=== PATIENT | female | born 1955 | race Caucasian/White ===

== ENCOUNTER 2016-11-11 11:31 | Day surgery (SDC) | payer BC, OTHER ==
[2016-11-11] MEDS ORDERED: MIDAZOLAM 2 MG/2 ML VIAL ONE ×2 (12:06→12:40)
[2016-11-11] MEDS ORDERED: fentaNYL 100 MCG/2 ML INJ ONE (12:06)
--- NOTE | 2016-11-11 13:58 | GPN ---
[f rep st] PROCEDURE NOTE DATE OF PROCEDURE: 11/11/2016 PROCEDURE: 1. Colonoscopy with biopsy. 2. Argon plasma coagulation and polypectomy procedure. INDICATION: Previous colonoscopy in July of 2016 revealed a 12 mm polyp in the cecum that had multiple areas of high-grade dysplasia. There was an additional 25 mm polyp in the distal ascending colon that was removed in piecemeal technique. The larger polyp was only a tubular adenoma. This procedure is to re-evaluate the cecal site to make sure there is no residual tissue with any high-grade dysplasia. PREOPERATIVE DIAGNOSIS: Rule out residual polyp tissue. POSTPROCEDURE DIAGNOSIS: 1. Mildly abnormal tissue in previous area of cecal polypectomy site, status post biopsy and argon plasma coagulation of any remaining tissue. 2. Small amount of abnormal tissue at previous distal ascending colon polypectomy site, status post biopsy and argon plasma coagulation. 3. 15 mm semi-pedunculated polyp in the rectosigmoid area, removed in total by hot snare. 4. Diffuse melanosis coli. INFORMED CONSENT: I had a detailed discussion with the patient regarding the procedure, alternatives, benefits, and risks, including bleeding, perforation, infection, risk of medication. Informed consent was signed and witnessed. COMPLICATIONS: None immediate. MEDICATIONS: Used for today is Versed 9 mg IV, fentanyl 100 mcg IV. DESCRIPTION OF PROCEDURE: Patient was in left lateral decubitus position. After adequate sedation, a visual and digital anorectal examination was performed. The video colonoscope was then inserted via the rectum and advanced under visualization to the cecum, identified by ileocecal valve, appendiceal orifice, confluence of tinea, and palpation. The patient did have significant looping in the colon that required manual pressure, increased sedation, and shortening and reduction of the loop. When we performed this in July as an outpatient, she was unsedated and had a very difficult time with the procedure. Knowing I woujld be repeating the exam within a few months, that is why removed the scope quickly and did not recognize a large polyp in the rectosigmoid area. With adequate sedation, the patient tolerated the procedure fairly well. Upon withdrawal of the instrument, careful attention was paid to mucosal detail. The prep was very good. There was diffuse melanosis coli which made it actually relatively easy to see the previous polypectomy sites. The area in the cecum, I had used a hot snare. There was some mildly abnormal tissue. I do not think there was any residual polyp tissue. Nevertheless, I did biopsy the area extensively and destroyed it with argon plasma coagulation. Retroflex examination did reveal a tiny bit of abnormal tissue at the large polypectomy site in the distal ascending colon. Multiple biopsies were obtained, and this area was again treated with argon positive coagulation to destroy any remaining tissue. In addition, a 1.5 cm polyp was noted in the rectosigmoid colon and semi-pedunculated. This was removed in total by hot snare. Retroflexed examination was performed in the rectum as well as the ascending colon as noted above. The patient tolerated the procedure well, and was transferred to recovery room in satisfactory condition. IMPRESSION: 1. Mildly abnormal tissue at the cecal polypectomy site, status post biopsy and argon plasma coagulation. 2. Mildly abnormal tissue at previous ascending colon polypectomy site, status post biopsy and argon plasma coagulation. 3. 1.5 cm rectosigmoid polyp removed by cold snare. 4. Diffuse melanosis coli. RECOMMENDATIONS: 1. Follow up pathology of polyps. 2. Repeat colonoscopy will be determined by the results of the pathology. I do not think I would wait more than 1 year to re-evaluate this colon. If there is significant abnormal tissue at the previous polypectomy site in the cecum with any high-grade dysplasia, we may consider surgical resection. 3. Try to avoid aspirin, nonsteroidal anti-inflammatory drugs for at least 1 week if not 10 days. Tylenol is fine to use. 4. High-fiber, high-fluid diet. 5. Try to avoid senna and cascara-type laxatives. This is the cause of the melanosis coli. We believe those laxatives may cause "a lazy colon" in the long run. 6. Discharge home with escort when stable. 7. Follow up with primary care physician as scheduled. 8. Would recommend her 1st degree relatives get screened starting at age 40 at 10-year intervals given patient's large polyps removed in her early 60s. I suspect these were present in her late 50s. 9. Further recommendations to follow results of pathology. Thank you for allowing me to participate in patient's care. Do not hesitate to call me with any questions. /[id number]/MODL MTDD
== END 2016-11-11 13:40 | disposition home or self-care (01) ==
LOC: FSGY 11:31
PROVIDERS: ATTEND Internal Medicine Gastroenterology
PROC: 0DBN8ZX Excision of Sigmoid Colon, Via Natural or Artificial Opening Endoscopic, Diagnostic (ICD-10-PCS; principal; 2016-11-11 12:15)
PROC: 0DBH8ZX Excision of Cecum, Via Natural or Artificial Opening Endoscopic, Diagnostic (ICD-10-PCS; principal; 2016-11-11 12:15)
PROC: 0DBK8ZX Excision of Ascending Colon, Via Natural or Artificial Opening Endoscopic, Diagnostic (ICD-10-PCS; principal; 2016-11-11 12:15)
PROC: 0D5E8ZZ Destruction of Large Intestine, Via Natural or Artificial Opening Endoscopic (ICD-10-PCS; principal; 2016-11-11 12:15)
DX: D12.6 Benign neoplasm of colon, unspecified (principal); K63.89 Other specified diseases of intestine
CPT/HCPCS: J2250; J3010

== ENCOUNTER 2017-05-19 10:09 | Day surgery (SDC) | payer OTHER ==
[2017-05-19] MEDS ORDERED: NS 500 ML IV ONE (10:42)
[2017-05-19 10:52] VITALS: PULSE 64; TEMP 97.9
--- NOTE | 2017-05-19 12:17 | PDPROPOC ---
Sedation Plan of Care Sedation Plan of Care: vital signs stable, mental status noted, patient educated of risks, benefits, alternatives, patient can tolerate sedation ASA Classification: ASA 1 Planned drugs: fentanyl, midazolam Mallampati Reference Image: 2 Patient passed 3-3-2 rule?: Yes
--- NOTE | 2017-05-19 12:19 | PDGENHP ---
History & Physical Chief Complaint: phx polyps History of Present Illness: phx polyps Pertinent Past, Social, Family History: no tobacco. alcohol - 1 glass per day 5 of 7 days. fhx polyps no fhx cc Relevant Physical Exam: A+Ox3. CTA. S1S2. +BS, soft nt Cardiorespiratory Assessment: class 1
[2017-05-19] MEDS ORDERED: MIDAZOLAM 2 MG/2 ML VIAL ONE (12:22)
[2017-05-19] MEDS ORDERED: fentaNYL 100 MCG/2 ML INJ ONE (12:23)
[2017-05-19 13:13] VITALS: RESP 15; O2SAT 98
--- NOTE | 2017-05-19 13:22 | GIREPORT ---
[facility] - Endoscopy Department Patient Name: Paulina Beauchamp Procedure Date: 05/19/2017 12:26 PM Patient Type: Outpatient Attending MD/ ER Physician: Bhaskar Calderón Procedure: Colonoscopy Indications: Surveillance: Personal history of piecemeal removal of large sessile ad enoma on last colonoscopy (less than 1 year ago) Providers: Darnell Talbot MD Referring MD: Dany Brantley M.D. Medicines: Fentanyl 125 micrograms IV, Midazolam 9 mg IV Complications: No immediate complications. Estimated blood loss: Minimal. Description of Procedure: After obtaining informed consent, the scope was passed under direct vis ion. Throughout the procedure, the patient's blood pressure, pulse, and oxyg en saturations were monitored continuously. The Colonoscope with irrigatio n channel was introduced through the anus and advanced to the cecum, identified by the appendiceal orifice, ileocecal valve and palpation. T he colonoscopy was performed without difficulty. The patient tolerated the procedure well. The quality of the bowel preparation was good. Findings: The digital rectal exam was normal. A 3 mm polyp was found in the cecum. The polyp was sessile. The polyp w as removed with a piecemeal technique using a cold biopsy forceps. Resecti on and retrieval were complete. Estimated blood loss was minimal. A post polypectomy scar was found in the cecum. There was no evidence o f the previous polyp. Biopsies were taken with a cold forceps for histology. Estimated blood loss was minimal. A post polypectomy scar was found in the distal ascending colon. There was no evidence of the previous polyp. Biopsies were taken with a cold forc eps for histology. Estimated blood loss was minimal. A 5 mm polyp was found in the descending colon. The polyp was sessile. The polyp was removed with a cold snare. Resection and retrieval were compl ete. Estimated blood loss was minimal. A diffuse area of severe melanosis was found in the entire colon. Non-bleeding internal hemorrhoids were found during retroflexion. The exam was otherwise without abnormality. Estimated Blood Loss: Estimated blood loss was minimal. Post Op Diagnosis: - One 3 mm polyp in the cecum, removed piecemeal using a cold biopsy forceps. Resected and retrieved. - Post-polypectomy scar in the cecum. Biopsied. - Post-polypectomy scar in the distal ascending colon. Biopsied. - One 5 mm polyp in the descending colon, removed with a cold snare. Resected and retrieved. - Melanosis in the colon. - The examination was otherwise normal. Recommendation: - Await pathology results. - My office will call with the pathology result with 5-7 days. If you h ave not heard from my office by 12-14, do not assume the pathology is bella l, please call [phone] to get the pathology results. - Repeat colonoscopy in 1 year for surveillance based on pathology resu lts. 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 - High fiber diet. - Patient has a contact number available for emergencies. The signs and symptoms of potential delayed complications were discussed with the pat ient. Return to normal activities tomorrow. Written discharge instructions we re provided to the patient. - Continue present medications. - Discharge patient to home (ambulatory). - Return to primary care physician as previously scheduled. - Thank you for allowing me to help in your patient's care. Do not hesi madera to call with any questions. Attending Participation: I personally performed the entire procedure. Antione Patrick M.D Darnell Talbot MD 05/19/2017 1:21:14 PM This report has been signed electronicallyMathew MD Antione Number of Addenda: 0 Note Initiated On: 05/19/2017 12:26 PM Total Procedure Duration Time 0 hours 33 minutes 30 seconds [email or web address]
[2017-05-19 13:41] VITALS: BP 116/66
== END 2017-05-19 14:02 | disposition home or self-care (01) ==
LOC: FSGY 10:09
PROVIDERS: ATTEND Internal Medicine Gastroenterology
PROC: 0DBM8ZX Excision of Descending Colon, Via Natural or Artificial Opening Endoscopic, Diagnostic (ICD-10-PCS; principal; 2017-05-19 12:00)
PROC: 0DBK8ZX Excision of Ascending Colon, Via Natural or Artificial Opening Endoscopic, Diagnostic (ICD-10-PCS; principal; 2017-05-19 12:00)
PROC: 0DBH8ZX Excision of Cecum, Via Natural or Artificial Opening Endoscopic, Diagnostic (ICD-10-PCS; principal; 2017-05-19 12:00)
DX: D12.4 Benign neoplasm of descending colon (principal); D12.0 Benign neoplasm of cecum
CPT/HCPCS: J2250; J3010